=== PATIENT | male | born 1935 | race Two or more races ===

== ENCOUNTER 2017-09-04 16:06 | Emergency (ER) | payer MEDICARE, OTHER ==
[~2017-09-04] VITALS: Ht 162.6 cm; Wt 88.5 kg
--- NOTE | 2017-09-04 16:10 | NUR ---
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 A/OX 4. BREATHING EVEN AND UNLABORED. NO SOB, NAD, VITALS STABLE. SAFETY AND COMFORT MEASURES IN PLACE. AWAITING MD ORDERS.
[2017-09-04] MEDS ORDERED: HYDROCODONE/APAP 5/325MG 1 EACH TABLET ONE ×2 (16:42→16:49)
[2017-09-04] MEDS ORDERED: TDAP [DIPH/PERTUSSIS/TET] 0.5 ML VIAL IM ONE ×2 (16:42→17:00)
--- NOTE | 2017-09-04 16:52 | NUR ---
PATIENT MEDCIATED PER MD ORDERS.
[2017-09-04] MEDS ORDERED: HYDROCODONE/APAP 5/325MG 1 EACH TABLET PO ONE (17:00)
--- NOTE | 2017-09-04 17:34 | NUR ---
career technology teacher at bedside.
--- NOTE | 2017-09-04 17:50 | NUR ---
RIGHT SHOULDER SLING APPLIED PER DR. RIOS.
[2017-09-04 18:24] VITALS: BP 131/78
--- NOTE | 2017-09-04 18:25 | NUR ---
Patient discharged to home in stable condition. Written and verbal after care instructions given. Patient verbalizes understanding of instruction.
== END 2017-09-04 18:25 | disposition home or self-care (01) ==
LOC: ER 16:09
DX: S42.201A Unspecified fracture of upper end of right humerus, initial encounter for closed fracture (principal); S80.01XA Contusion of right knee, initial encounter; E11.9 Type 2 diabetes mellitus without complications; I10 Essential (primary) hypertension; Z88.0 Allergy status to penicillin; W17.89XA Other fall from one level to another, initial encounter; Y93.89 Activity, other specified; Y92.89 Other specified places as the place of occurrence of the external cause; Y99.8 Other external cause status
CPT/HCPCS: 71045; 73060; 90471; 90715; 99284; A4606; Z7610